=== PATIENT | female | born 1975 | race African-American/Black ===

== ENCOUNTER 2018-11-03 21:30 | Emergency (ER) | payer BC ==
[~2018-11-03] VITALS: Ht 157.5 cm; Wt 104.3 kg
[2018-11-03] MEDS ORDERED: METFORMIN HCL500 MG PO (21:55)
[2018-11-03] MEDS ORDERED: PREDNISONE 20 M20 MG PO (23:32)
[2018-11-03] MEDS ORDERED: AMOXICILLIN875 MG PO (23:32)
[2018-11-03 23:43] VITALS: BP 133/81
== END 2018-11-03 23:44 | disposition home or self-care (01) ==
LOC: ER 21:30
DX: J06.9 Acute upper respiratory infection, unspecified (principal); J04.0 Acute laryngitis; H92.03 Otalgia, bilateral; E11.9 Type 2 diabetes mellitus without complications; Z88.8 Allergy status to other drugs, medicaments and biological substances